=== PATIENT | female | born 1955 | race Caucasian/White ===

== ENCOUNTER 2023-02-15 06:24 | Day surgery (SDC) | payer MEDICARE, OTHER ==
[~2023-02-15] VITALS: Ht 162.6 cm; Wt 61.4 kg
[~2023-02-15 06:24] MED LIST: ALDACTONE25 MG PO; ASPIR-LOW81 MG PO; B COMPLEX1 EACH PO; CITRUS CALCIUM +1 EA PO; COQ10 SG 100 S1 EACH PO; FLUTICASONE PRO16 GM NAS; GLUCOSAMINE-CH1 EA36 PO; LEVOTHYROXINE50 MCG PO; LOSARTAN POTAS100 MG PO
[2023-02-15 06:40] VITALS: BP 141/71
[2023-02-15] MEDS ORDERED: CRANBERRY200 MG PO (06:47)
[2023-02-15] MEDS ORDERED: DICLOFENAC SODI75 MG PO (06:48)
--- NOTE | 2023-02-15 07:06 | NUR ---
PT ACCOMPANIED BY . BOTH IN GOOD SPIRITS. PT CONSENTED TO PRAYER. PRAYED FOR SUCCESSFUL PROCEDURE AND BLESSING.
--- NOTE | 2023-02-15 08:29 | NUR ---
02/15/23 0829 Taylor Clements 0817- PT ARRIVES TO PACU, SUPINE POSITION. LR INFUSING TO IV IN RW. PT ALERT BUT DROWSY. DENIES PAIN, ABD SOFT, NON DISTENDED. ENCOURAGED TO PASS GAS. O2 AT 2L PER NC. ALL MONITORS IN PLACE. 0819- PT PLACED ON ROOM AIR, WILL CONTINUE TO MONITOR. PT C/O RIGHT SHOULDER ACHING, NORMAL PAIN PRIOR TO PROCEDURE. PT MOVING SHOULDER TO HELP WITH PAIN. C/O DRY MOUTH, WET SWAB PROVIDED AT THIS TIME. 0824- DR RIVERA AT BEDSIDE, O2 SATS DOWN TO 89-90% ON ROOM AIR WHILE RESTING. PLACED ON 2L PER NC AT THIS TIME. PT AROUSES TO VERBAL STIMULI. RESTING OFF AND ON.
[2023-02-15 08:47] VITALS: BP 102/44
--- NOTE | 2023-02-18 10:42 | OR ---
[facility] [address], [place] [address] Signed DATE OF OPERATION: 02/15/2023 SURGEON: Cecille Rivera MD PREOPERATIVE DIAGNOSIS: Colon screening. POSTOPERATIVE DIAGNOSES: Sigmoid and left-sided diverticulosis, mild proctitis. PROCEDURES: Total colonoscopy to cecum, biopsy of rectum. INDICATION: This 68-year-old white woman is a patient of RADHA Pardo. She underwent colonoscopy in 2003 showing diverticulosis and repeated 10 years later in 2013, again showing only diverticulosis. She remains symptom-free regarding the colon. She is admitted to undergo screening colonoscopy. She understands the risk of bleeding, infection, and perforation. FINDINGS: The prep was good. Complete colonoscopy was undertaken of the cecum without question. She once again had diverticulosis of the sigmoid and left colon, but no sign of polyps. She did have mild proctitis, possibly bowel prep related. Biopsy was obtained. DESCRIPTION OF PROCEDURE: The patient was brought to the endoscopy suite and placed in lateral decubitus position, given intravenous sedation to the point of slurred speech and nystagmus. Digital rectal examination was normal. An Olympus video colonoscope was passed in the rectum and manipulated throughout the colon. Passage to the sigmoid was somewhat uncomfortable and additional sedation was given as needed. Ultimately, scope was passed beyond this easily to the cecum with full intubation of the cecum was undertaken. The ileocecal valve and appendiceal orifice were normal. Scope was withdrawn from that point and examination throughout showed no sign of abnormality other than the diverticulosis. There was some mild inflammation of the rectum for which cold morcellation biopsy was undertaken. Retroflexed view was otherwise normal. The scope was removed and the patient was taken to the recovery room in good condition. Electronically Signed By: CECILLE RIVERA MD 02/18/23 1042 PATIENT NAME: CORBIN RODRIGUEZ OPERATIVE REPORT DATE OF : 51 REPORT #: [id number] PHYSICIAN: CECILLE RIVERA MD PCP: URSULA MOYER NP REPORT IS CONFIDENTIAL AND NOT TO BE RELEASED WITHOUT AUTHORIZATION [facility] [address], [place] [address] Signed CONCLUDING DIAGNOSES: Diverticulosis, mild proctitis. PLAN: We would recommend high-fiber diet. We will review pathology report regarding mild proctitis probably bowel prep related. Recommend repeat colonoscopy in 10 years if clinically appropriate given her age at that time of 78 years. She will return to the ongoing care of RADHA Pardo. MD SHENA Contreras/JUAN RAMON /[id number] cc: RADHA Pardo Copies: ~ Electronically Signed By: CECILLE RIVERA MD 02/18/23 1042 PATIENT NAME: CORBIN RODRIGUEZ OPERATIVE REPORT DATE OF : 51 REPORT #: [id number] PHYSICIAN: CECILLE RIVERA MD PCP: URSULA MOYER NP REPORT IS CONFIDENTIAL AND NOT TO BE RELEASED WITHOUT AUTHORIZATION
== END 2023-02-15 09:00 ==
LOC: OPS 06:24 → DS 06:24 → OPS 07:30
PROVIDERS: ATTEND Surgery
PROC: 0DJD8ZZ Inspection of Lower Intestinal Tract, Via Natural or Artificial Opening Endoscopic (ICD-10-PCS; principal; 2023-02-15 07:30)
DX: Z12.11 Encounter for screening for malignant neoplasm of colon (principal); Z83.71 Family history of colonic polyps; I10 Essential (primary) hypertension; E03.9 Hypothyroidism, unspecified; Z90.49 Acquired absence of other specified parts of digestive tract; Z90.711 Acquired absence of uterus with remaining cervical stump; K57.30 Diverticulosis of large intestine without perforation or abscess without bleeding; K62.89 Other specified diseases of anus and rectum
CPT/HCPCS: 88305; 99153; G0500; J2250; J3010; J7121